=== PATIENT | female | born 1995 | race Caucasian/White ===

== ENCOUNTER 2017-05-27 18:36 | Emergency (ER) | payer OTHER ==
[2017-05-27 18:46] VITALS: BP 123/63
--- NOTE | 2017-05-27 19:33 | UC ---
Abdominal Pain Female HPI - HPI Summary HPI Summary: 21 y./o female with h/o sharp, crampy abdominal pain. Patient states may be b/ c of eating mayonaise after refridgerator broke over weekend. 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 + nausea, chills, ? fever. pain throughout abdomen, now worse RLQ. No h/o abdominal complaints. no blood in urine/ stool. - History of Current Complaint Chief Complaint: UCAbdominalPain Stated Complaint: DIARRHEA, ABDOMINAL PAIN Time Seen by Provider: 05/27/17 18:45 Hx Obtained From: Patient, Family/Sql Bi Developer Hx Last Menstrual Period: unknown ?: No Onset/Duration: Sudden Onset, Lasting Days, Still Present Severity Initially: Moderate Severity Currently: Moderate Location: Diffuse Radiates: Yes Radiates to: RLQ Character: Colicy, Cramping, Sharp Aggravating Factor(s): Food, Movement Alleviating Factor(s): Nothing Allergies/Adverse Reactions: Allergies Allergy/AdvReac Type Severity Reaction Status Date / Time No Known Allergies Allergy Verified 05/27/17 18:46 Home Medications: Home Medications NK [No Home Medications Reported] 05/27/17 [History Confirmed 05/27/17] PMH/Surg Hx/FS Hx/Imm Hx Previously Healthy: Yes - Surgical History Surgical History: None - Family History Known Family History: Positive: None - Social History Alcohol Use: Occasionally Substance Use Type: None Smoking Status (MU): Light Every Day Tobacco Smoker Type: Cigarettes Amount Used/How Often: 1/4 PPD Length of Time of Smoking/Using Tobacco: 5 Years Have You Smoked in the Last Year: Yes Household Exposure Type: Cigarettes - Immunization History Most Recent Influenza Vaccination: Not the Season Review of Systems Constitutional: Fever - tactile, Chills Gastrointestinal: Abdominal Pain, Diarrhea, Nausea Neurological: Weakness - fatigue, weakness denies lightheadedness, dizziness + drinking gatorade All Other Systems Reviewed And Are Negative: Yes Physical Exam Triage Information Reviewed: Yes Appearance: Well-Appearing, No Pain Distress, Well-Nourished Vital Signs: Initial Vital Signs Temp 98.6 F 05/27/17 18:41 Pulse 86 05/27/17 18:41 Resp 16 05/27/17 18:41 BP 123/63 05/27/17 18:41 Pulse Ox 99 05/27/17 18:41 Vital Signs Reviewed: Yes Respiratory: Positive: Chest non-tender, Lungs clear, Normal breath sounds, No respiratory distress, No accessory muscle use Cardiovascular: Positive: RRR, No Murmur Abdomen Description: Positive: Soft, Guarding, McBurney's Point Tenderness, Other: - + psoas sign Bowel Sounds: Positive: Hyperactive Neurological: Positive: Alert, Muscle Tone Normal Psychological Exam: Normal Abd Pain Female Course/Dx - Course Course Of Treatment: due to need for imaging/ further care patient advised to see ER- discussed witleslie MISHRA at [facility]. patient in agreement - Differential Dx/Diagnosis Differential Diagnosis: Appendicitis, Bowel Obstruction, Provider Diagnoses: RLQ abdominal pain, r/o appendicitis sent to ER for further imaging, care. Discharge - Discharge Plan Condition: Guarded Disposition: HOME Patient Education Materials: Acute Abdominal Pain (ED) Referrals: NIKO CarnesMague [Primary Care Provider] - Additional Instructions: - Due to possibility of appendicitis, further work up is required- recommended to go immediately to ER for further testing/ imaging. Discussed with patient
== END 2017-05-27 19:34 | disposition home or self-care (01) ==
LOC: UCCORT 18:36
DX: R10.31 Right lower quadrant pain (principal); R19.7 Diarrhea, unspecified; R53.83 Other fatigue; R50.9 Fever, unspecified; Z32.02 Encounter for pregnancy test, result negative; F17.210 Nicotine dependence, cigarettes, uncomplicated
CPT/HCPCS: 81003; 84702; 99211; G0463

== ENCOUNTER 2018-01-02 16:52 | Emergency (ER) | payer BC ==
[2018-01-02 17:15] VITALS: BP 127/62
--- NOTE | 2018-01-02 17:32 | ED ---
Abdominal Pain/Female - HPI Summary HPI Summary: 22 yr old female with intermittent low back pain, and low pelvic pain over the past few days. She is 28 wk . She has not had any urinary symptoms. She has not had bloody show or leakage of fluid. She says at times she was doubled over in pain/cramps. The patient states she called her OB at 430 pm and was told to come to convenient care. - History of Current Complaint Chief Complaint: UCGU Stated Complaint: UTI Time Seen by Provider: 01/02/18 16:59 Hx Last Menstrual Period: unknown Pain Intensity: 5 Allergies/Adverse Reactions: Allergies Allergy/AdvReac Type Severity Reaction Status Date / Time No Known Allergies Allergy Verified 05/27/17 18:46 PMH/Surg Hx/FS Hx/Imm Hx Infectious Disease History: No Infectious Disease History: Denies: Traveled Outside the [place] in Last 30 Days - Family History Known Family History: Positive: None - Social History Occupation: Employed Full-time Lives: With Family Alcohol Use: None Substance Use Type: Reports: None Smoking Status (MU): Light Every Day Tobacco Smoker Type: Cigarettes Amount Used/How Often: 5 cigs/day Length of Time of Smoking/Using Tobacco: 5 Years Have You Smoked in the Last Year: Yes Review of Systems Constitutional: Negative Positive: Abdominal Pain Positive: other - back pain All Other Systems Reviewed And Are Negative: Yes Physical Exam Triage Information Reviewed: Yes Vital Signs On Initial Exam: Initial Vitals Temp Pulse Resp BP Pulse Ox 97.3 F 106 16 127/62 100 01/02/18 17:08 01/02/18 17:08 01/02/18 17:08 01/02/18 17:08 01/02/18 17:08 Vital Signs Reviewed: Yes Appearance: Positive: Well-Appearing, No Pain Distress Skin: Positive: Warm, Skin Color Reflects Adequate Perfusion Head/Face: Positive: Normal Head/Face Inspection Eyes: Positive: EOMI ENT: Positive: TMs normal Neck: Positive: Nontender Respiratory/Lung Sounds: Positive: Clear to Auscultation, Breath Sounds Present Cardiovascular: Positive: RRR. Negative: Murmur Abdomen Description: Positive: Other: - gravid abdomen Musculoskeletal: Positive: Strength/ROM Intact Neurological: Positive: Sensory/Motor Intact, Alert, Oriented to Person Place, Time, CN Intact II-III Psychiatric: Positive: Normal - Michael Coma Scale Best Eye Response: 4 - Spontaneous Best Motor Response: 6 - Obeys Commands Best Verbal Response: 5 - Oriented Coma Scale Total: 15 Diagnostics - Vital Signs Vital Signs Temp Pulse Resp BP Pulse Ox 01/02/18 17:08 97.3 F 106 16 127/62 100 - Laboratory Lab Results: Lab Results 01/02/18 Range/Units 17:14 POC Urine Color Yellow POC Urine Clarity Cloudy POC Urine pH 7.0 (5-9) POC Ur Specif Eastman 1.015 (1.010-1.030) POC Urine Protein Negative (Negative) POC Ur Glucose (UA) Negative (Negative) POC Urine Ketones Negative (Negative) POC Urine Blood Trace-intact A (Negative) POC Urine Nitrite Negative (Negative) POC Urine Bilirubin Negative (Negative) POC Urine Urobilinogen 0.2 (Negative) POC U Leukocyte Esteras Negative (Negative) Lab Statement: Any lab studies that have been ordered have been reviewed, and results considered in the medical decision making process. Abdominal Pain Fem Course/Dx - Course Course Of Treatment: 22 yrold with abdominal and back pain and 28 week . To ER for further eval. She signed out AMA refusing the ambulance transport. - Diagnoses Provider Diagnoses: Back pain, Pelvic pain Discharge - Discharge Plan Condition: Good Disposition: AGAINST MEDICAL ADVICE Referrals: NIKO Monte [Primary Care Provider] -
== END 2018-01-02 17:35 | disposition left against medical advice (07) ==
LOC: EDUNIT# → UCCORT 16:52
DX: O26.892 Other specified pregnancy related conditions, second trimester (principal); Z3A.28 28 weeks gestation of pregnancy; M54.9 Dorsalgia, unspecified; R10.2 Pelvic and perineal pain; O99.331 Smoking (tobacco) complicating pregnancy, first trimester; F17.219 Nicotine dependence, cigarettes, with unspecified nicotine-induced disorders
CPT/HCPCS: 81003; 99212; G0463